=== PATIENT | male | born 1970 | race Asian ===

== ENCOUNTER 2017-02-27 10:47 | Emergency (ER) | payer SELFPAY, OTHER | END 2017-02-27 12:01 | disposition home or self-care (01) | LOC: ER 10:47 | DX: B37.2 Candidiasis of skin and nail (principal) | CPT/HCPCS: 99283 ==

== ENCOUNTER 2017-03-12 18:48 | Emergency (ER) | payer SELFPAY ==
[2017-03-12] MEDS: diphenhydrAMINE 50 MG/ML VIAL IM ×2 (20:14)
[2017-03-12] MEDS: predniSONE 20 MG TABLET PO ×2 (20:15)
[2017-03-12] MEDS: FAMOTIDINE 20 MG TABLET. PO ×2 (20:15)
== END 2017-03-12 20:40 | disposition home or self-care (01) ==
LOC: ER 18:48
DX: L50.9 Urticaria, unspecified (principal)
CPT/HCPCS: 96372; 99283-25; J1200; J7512

== ENCOUNTER 2017-03-15 09:29 | Emergency (ER) | payer SELFPAY | END 2017-03-15 10:49 | disposition home or self-care (01) | LOC: ER 09:29 | DX: R23.8 Other skin changes (principal) | CPT/HCPCS: 99281 ==